=== PATIENT | female | born 1940 | race Caucasian/White ===

== ENCOUNTER → 2016-09-16 | Outpatient (CLI) | payer MEDICARE | END | disposition home or self-care (01) | LOC: EDSTATUS 12:00 → CVU 12:10 | PROVIDERS: ATTEND Family Medicine | DX: I08.3 Combined rheumatic disorders of mitral, aortic and tricuspid valves (principal); I37.1 Nonrheumatic pulmonary valve insufficiency; I10 Essential (primary) hypertension | CPT/HCPCS: 93306 ==